=== PATIENT | female | born 1995 | race Caucasian/White ===

== ENCOUNTER 2017-09-12 18:20 | Emergency (ER) | payer BC ==
[2017-09-12 18:39] VITALS: BP 115/71; PULSE 87; TEMP 98.2; BMI 37.0
--- NOTE | 2017-09-12 19:10 | PDOC ---
History of Present Illness - General History Source: Patient Exam Limitations: No Limitations - History of Present Illness Initial Comments: 09/12/17 19:42 The patient is a 22 year old female, with a significant PMH of chronic ear infection , who presents to the emergency department with neck pain that began approximately yesterday. The patient states she went swimming yesterday and dove into the water, injuring her neck and upper shoulder. The patient reports mid neck and lower back discomfort after the incident. The patient state she went to Urgent care today and told her to report to the ED for further evaluation. The patient denies any numbness and tingling to the neck. The patient denies chest pain, shortness of breath, headache and dizziness. PAST SURGICAL HISTORY: no significant history FAMILY HISTORY: no pertinent history SOCIAL HISTORY: Pt lives with family. . MEDICATIONS: reviewed ALLERGIES: Cefixime, Penicillin Adult ROS General: No fevers or chills, no weakness, no weight loss HEENT: No change in vision. No sore throat,. No ear pain CardioVascular: No chest pain or shortness of breath Respiratory:No cough, or wheezing. Gastrointestinal: no nausea, vomiting, diarrhea or constipation, No rectal bleeding Genitourinary: No dysuria, hematuria, or frequency Musculoskeletal: +mild neck pain and lower back discomfort. Neurologic: No headache, vertigo, dizziness or loss of consciousness Psychiatric: nor depression Skin: No rashes or easy bruising Endocrine: no increased thirst or abnormal weight change Allergic: no skin or latex allergy All other systems reviewed and normal Basic PE GENERAL: The patient is awake, alert, and fully oriented, in no acute distress. HEAD: Normal with no signs of trauma. EYES: Pupils equal, round and reactive to light, extraocular movements intact, sclera anicteric, conjunctiva clear. EXTREMITIES: +Tenderness to palpation to the mid cervical spine to C2-C4.+Mild tenderness to palpation to the upper lower spine. Post exam cervical spine hard collar was placed until after CAT scan. If CAT scan is negative, rest of exam will be complete. NEUROLOGICAL: Normal speech, normal gait. PSYCH: Normal mood, normal affect. SKIN: Warm, Dry, normal turgor, no rashes or lesions noted. 09/12/17 21:13 Basic PE CAT scan "-". Soft collar removed. Full ROM with some discomfort. <Deion Kebede - Last Filed: 09/12/17 21:11> - General History Source: Patient Exam Limitations: No Limitations - History of Present Illness Initial Comments: 09/12/17 21:05 A portion of this note was documented by scribe services under my direction. I have reviewed the details of the note, within reason, and agree with the documentation. The case summary and management plan written by me. Assessment and plan: This is a 22-year-old female who comes in complaining of neck and low back pain post diving into a pool and hitting her chin on the bottom of the pool. Patient had a CAT scan of the cervical spine as she did have some tenderness on palpation CAT scan was negative for any acute pathology. Patient had an x-ray also of her lumbar spine that was negative for any acute pathology. Patient was given Motrin for the pain told to continue the Motrin and follow-up with her primary care doctor as needed. Repeat cervical exam post neg CT: patient had full range of motion of her neck wih some discomfort. Neurovascular is intact. 09/12/17 21:31 <Michelle Cortez I - Last Filed: 09/12/17 21:33> - General Chief Complaint: Pain Stated Complaint: NECK AND UPPER SHOULDER PAIN Time Seen by Provider: 09/12/17 19:09 Past History <Deion Kebede - Last Filed: 09/12/17 21:11> - Past Medical History COPD: No Other medical history: CHRONIC EAR INFECTIONS , PCOS, IMMUNOLOGICAL PROBLEM - Surgical History Appendectomy: Yes - Immunization History Td Vaccination: No - Suicide/Smoking/Psychosocial Hx Smoking Status: No Smoking History: Never smoked Have you smoked in the past 12 months: No Number of Cigarettes Smoked Daily: 0 Information on smoking cessation initiated: Yes Hx Alcohol Use: No Drug/Substance Use Hx: No Substance Use Type: None <Michelle Cortez I - Last Filed: 09/12/17 21:33> - Past Medical History Allergies/Adverse Reactions: Allergies Allergy/AdvReac Type Severity Reaction Status Date / Time cefixime [From Suprax] Allergy Verified 09/12/17 18:23 Penicillins Allergy Verified 09/12/17 18:22 Home Medications: Ambulatory Orders NK [No Known Home Medication] 09/12/17 *Physical Exam - Vital Signs Last Vital Signs Temp Pulse Resp BP Pulse Ox 98.2 F 87 16 115/71 100 09/12/17 18:21 09/12/17 18:21 09/12/17 18:21 09/12/17 18:21 09/12/17 18:21 <Tatyana Kebedesupa - Last Filed: 09/12/17 21:11> - Vital Signs Last Vital Signs Temp Pulse Resp BP Pulse Ox 98.2 F 87 16 115/71 100 09/12/17 18:21 09/12/17 18:21 09/12/17 18:21 09/12/17 18:21 09/12/17 18:21 <Michelle Cortez I - Last Filed: 09/12/17 21:33> ED Treatment Course - ADDITIONAL ORDERS Additional order review: Laboratory Results 09/12/17 19:21 Urine HCG, Qual Negative <Deion Kebede - Last Filed: 09/12/17 21:11> *DC/Admit/Observation/Transfer <Deion Kebede - Last Filed: 09/12/17 21:11> - Discharge Dispostion Decision to Admit order: No <Michelle Cortez I - Last Filed: 09/12/17 21:33> Diagnosis at time of Disposition: Cervical strain, acute Qualifiers: Encounter type: initial encounter Qualified Code(s): S16.1XXA - Strain of muscle, fascia and tendon at neck level, initial encounter Lumbar spine strain Qualifiers: Encounter type: initial encounter Qualified Code(s): S39.012A - Strain of muscle, fascia and tendon of lower back, initial encounter - Discharge Dispostion Disposition: HOME Condition at time of disposition: Stable - Patient Instructions Additional Instructions: For the pain take Tylenol or Motrin as directed on the packaging. Take it for at least 1 week. Return to the emergency department immediately with ANY new, persistent or worsening symptoms. Continue any medications as previously prescribed by your physician. You should follow up with your primary doctor as soon as possible regarding today's emergency department visit. . Please make sure your doctor reviews the results of your emergency evaluation. Thank you for coming to the Emergency Department today for your care. It was a pleasure to see you today. Please note that your evaluation is INCOMPLETE until you follow-up with your doctor.
[2017-09-12] MEDS ORDERED: IBUPROFEN 600 MG TABLET (FP) PO ONE ×2 (19:44→20:05)
== END 2017-09-12 21:14 | disposition home or self-care (01) ==
LOC: FER 18:20
DX: S16.1XXA Strain of muscle, fascia and tendon at neck level, initial encounter (principal); S39.012A Strain of muscle, fascia and tendon of lower back, initial encounter; X58.XXXA Exposure to other specified factors, initial encounter; Y93.11 Activity, swimming; Y92.34 Swimming pool (public) as the place of occurrence of the external cause
CPT/HCPCS: 72100-TC-FY; 72125-TC; 84703; 99283-25